=== PATIENT | female | born 1960 | race Caucasian/White ===

== ENCOUNTER 2017-02-02 06:03 | Inpatient (IN) | payer OTHER ==
[2017-01-17 13:22] VITALS: BMI 38.0
[2017-02-02] MEDS ORDERED: MIDAZOLAM HCL 2 MG/2 ML SINGLE DOSE VIAL ONE ×3 (07:10→09:01)
[2017-02-02] MEDS ORDERED: ROPIVACAINE HCL 0.5% 30ML VIAL ONE (07:10)
[2017-02-02] MEDS ORDERED: DEXAMETHASONE SOD PHOSPHATE/PF 10 MG/ML SDV ONE (07:10)
[2017-02-02] MEDS ORDERED: SODIUM CHLORIDE 0.9% P/F 10 ML VIAL IJ ONE (07:10)
[2017-02-02] MEDS ORDERED: BUPIVACAINE HCL/PF (5 MG/ML) 30 ML VIAL IJ ONE (07:10)
[2017-02-02] MEDS ORDERED: VANCOMYCIN 1,000 MG VIAL (RESTRICTED TO ID ONLY) ONE (07:13)
[2017-02-02] MEDS ORDERED: TRANEXAMIC ACID 1000 MG/10 ML VIAL ONE ×3 (07:13→09:07)
[2017-02-02] MEDS ORDERED: ceFAZolin SODIUM 1 GM VIAL ONE ×2 (07:13→09:07)
[2017-02-02] MEDS ORDERED: TRANEXAMIC ACID 1000 MG/10 ML VIAL IVPUSH ONE ×2 (07:22→11:35)
[2017-02-02] MEDS ORDERED: CEFAZOLIN 2 GM in DEXTROSE 5%-WATER - 50 ML IVPB ONE (07:22)
[2017-02-02] MEDS ORDERED: ROPIVICAINE 0.2%/MORPH PF/KETOROLAC - 51ML DISP.SYRINGE IA ONE ×3 (07:22→12:15)
[2017-02-02] MEDS: GABAPENTIN 300 MG CAPSULE (FP) PO ONE (07:25)
[2017-02-02] MEDS: PANTOPRAZOLE 40 MG TABLET (FP) PO ONE (07:25)
[2017-02-02] MEDS: oxyCODONE HCL 10 MG SUSTAINED ACTING TABLET PO ONE (07:25)
[2017-02-02] MEDS: CELECOXIB 200 MG CAPSULE PO ONE (07:25)
[2017-02-02] MEDS ORDERED: BUPIVACAINE HCL/PF 0.5% (5MG/ML) 10 ML VIAL ONE (07:46)
[2017-02-02] MEDS ORDERED: SUCCINYLCHOLINE CHLORIDE 200 MG/10 ML VIAL ONE (08:56)
[2017-02-02] MEDS ORDERED: PROPOFOL 20 ML ONE ×3 (08:56)
[2017-02-02] MEDS ORDERED: ePHEDrine SULFATE 50 MG/1 ML AMPULE ONE (09:51)
[2017-02-02] MEDS ORDERED: VANCOMYCIN 1 GRAM (PRE-DOCKED) 1,000 MG/250 ML BAG IVPB ONE (11:36)
[2017-02-02] MEDS ORDERED: CLONAZEPAM 0.125 MG PO PRN (12:51)
--- NOTE | 2017-02-02 12:51 | OP ---
Operative Note - Note: Operative Date: 02/02/17 Pre-Operative Diagnosis: left knee OA Operation: left TKA Post-Operative Diagnosis: Same as Pre-op Surgeon: Mo Castillo Meter Calibrator: Dede Bullock Anesthesia: Spinal Estimated Blood Loss (mls): 100
[2017-02-02] MEDS ORDERED: ONDANSETRON 4 MG/2 ML VIAL IVPB PRN (12:55)
[2017-02-02] MEDS ORDERED: MAGNESIUM HYDROX 2400MG/30ML ORAL SUSPENSION 30 ML CUP PO PRN (12:55)
[2017-02-02] MEDS ORDERED: MAG HYDROX/AL HYDROX/SIMETH 30 ML UNIT-DOSE CUP PO PRN (12:55)
[2017-02-02] MEDS ORDERED: LACTATED RINGERS SOLUTION 1,000 ML IV SCH (13:00)
[2017-02-02] MEDS ORDERED: oxyCODONE HCL 5 MG TABLET PO PRN (14:20)
[2017-02-02] MEDS ORDERED: KETOROLAC TROMETHAMINE 30 MG/1 ML VIAL ONE (14:27)
[2017-02-02] MEDS ORDERED: traMADol HCL 50 MG TABLET ONE (14:28)
[2017-02-02] MEDS ORDERED: ACETAMINOPHEN 325 MG TABLET (FP) ONE (14:28)
[2017-02-02] MEDS: KETOROLAC TROMETHAMINE 30 MG/1 ML VIAL IVPUSH SCH ×2 (14:30→19:30)
[2017-02-02] MEDS: traMADol HCL 50 MG TABLET PO SCH ×2 (14:30→19:30)
[2017-02-02] MEDS: ACETAMINOPHEN 325 MG TABLET (FP) PO SCH ×2 (14:30→21:14)
[2017-02-02] MEDS: oxyCODONE HCL 5 MG TABLET PO PRN (15:30)
[2017-02-02] MEDS: CEFAZOLIN 2 GM/D5W 50 ML IVPB SCH (18:00)
[2017-02-02] MEDS: oxyCODONE HCL 10 MG SUSTAINED ACTING TABLET PO SCH (21:14)
[2017-02-02] MEDS: SENNOSIDES/DOCUSATE COMBO (SENNA PLUS) TABLET (UD) PO SCH (21:14)
[2017-02-02] MEDS: clonazePAM 0.5 MG TABLET PO SCH (21:15)
[2017-02-02] MEDS: GABAPENTIN 300 MG CAPSULE (FP) PO SCH ×2 (21:15→21:16)
[2017-02-02] MEDS: CELECOXIB 200 MG CAPSULE PO SCH (21:15)
[2017-02-02] MEDS: ASCORBIC ACID 500 MG TABLET (FP) PO SCH (21:16)
[2017-02-02] MEDS: CHOLECALCIFEROL (VITAMIN D3) 1,000 UNIT TABLET (FP) PO SCH (21:16)
[2017-02-03] MEDS: traMADol HCL 50 MG TABLET PO SCH ×4 (00:19→19:21)
[2017-02-03] MEDS: KETOROLAC TROMETHAMINE 30 MG/1 ML VIAL IVPUSH SCH ×2 (00:20→06:50)
[2017-02-03] MEDS: CEFAZOLIN 2 GM/D5W 50 ML IVPB SCH (02:41)
[2017-02-03] MEDS: ACETAMINOPHEN 325 MG TABLET (FP) PO SCH ×4 (03:06→20:37)
[2017-02-03] MEDS: LEVOTHYROXINE NA 125 MCG TABLET (FP) PO SCH (06:50)
[2017-02-03] MEDS: LIOTHYRONINE SODIUM 5 MCG TABLET PO SCH (06:56)
[2017-02-03 08:42] LABS: MCH 27.1 pg (25.7-33.7); MEAN CELL VOLUME 82.3 fl (80-96); MEAN PLT VOLUME 8.4 fl (7.5-11.1); PLATELET COUNT 217 K/MM3 (134-434); RDW 14.3 % (11.6-15.6); WHITE BLOOD COUNT 7.3 K/mm3 (4.0-10.8)
[2017-02-03 08:50] LABS: ANION GAP 6 (8-16); CALCIUM 8.4 mg/dl (8.4-10.2); CO2 28 mmol/L (22-28); CREATININE 0.9 mg/dl (0.6-1.3); GLUCOSE,RANDOM 122 mg/dl (74-106)
[2017-02-03] MEDS: ASCORBIC ACID 500 MG TABLET (FP) PO SCH ×2 (09:28→22:02)
[2017-02-03] MEDS: GABAPENTIN 300 MG CAPSULE (FP) PO SCH ×4 (09:28→22:01)
[2017-02-03] MEDS: oxyCODONE HCL 10 MG SUSTAINED ACTING TABLET PO SCH ×2 (09:28→22:01)
[2017-02-03] MEDS: MULTIVITAMINS (DAILY MVI) TABLET (FP) PO SCH (09:28)
[2017-02-03] MEDS: SENNOSIDES/DOCUSATE COMBO (SENNA PLUS) TABLET (UD) PO SCH ×2 (09:28→22:02)
[2017-02-03] MEDS: ASPIRIN 325 MG TABLET PO SCH (09:29)
[2017-02-03] MEDS: HYDROCHLOROTHIAZIDE 12.5 MG CAPSULE (FP) PO SCH (09:29)
[2017-02-03] MEDS: PANTOPRAZOLE 40 MG TABLET (FP) PO SCH (09:29)
[2017-02-03] MEDS: CELECOXIB 200 MG CAPSULE PO SCH ×2 (09:29→22:00)
[2017-02-03] MEDS: LOSARTAN POTASSIUM 50 MG TABLET (FP) PO SCH (09:35)
[2017-02-03] MEDS: amLODIPine BESYLATE 2.5 MG TABLET (FP) PO SCH (09:35)
[2017-02-03] MEDS ORDERED: PATIENT'S OWN MEDICATION (NON-FORMULARY) (Losartan/Hydrochlorothiazide [Losartan-Hctz 100- PO SCH (10:00)
[2017-02-03] MEDS: GABAPENTIN 300 MG CAPSULE (FP) PO ONE (10:19)
[2017-02-03] MEDS: CELECOXIB 200 MG CAPSULE PO ONE (10:19)
[2017-02-03] MEDS: PANTOPRAZOLE 40 MG TABLET (FP) PO ONE (10:20)
[2017-02-03] MEDS: oxyCODONE HCL 10 MG SUSTAINED ACTING TABLET PO ONE (10:20)
--- NOTE | 2017-02-03 13:36 | PN ---
Progress Note (short form) - Note Progress Note: ANESTHESIOLOGY POST-OP: 56 yo female POD#1 s/p TKA. Patient doing well. Pain adequately controlled. Adductor canal and posterior tibial blocks working well. Encouraged patient to pariticipate in PT and continue to use IS. Patient satisfied with anesthesia care.
[2017-02-03] MEDS: oxyCODONE HCL 5 MG TABLET PO PRN (16:03)
[2017-02-03] MEDS ORDERED: KETOROLAC TROMETHAMINE 30 MG/1 ML VIAL IVPUSH ONE (21:21)
--- NOTE | 2017-02-03 21:23 | PN ---
Progress Note (short form) - Note Progress Note: Pt seen and examined. Doing well. Pain 410. AVSS Selected Entries 02/03/17 14:28 Temperature 97.8 F Pulse Rate 70 Respiratory 18 Rate Blood Pressure 129/75 O2 Sat by Pulse 98 Oximetry (%) Laboratory Tests 02/03/17 02/03/17 07:00 07:00 WBC 7.3 Hgb 11.5 Hct 35.0 Plt Count 217 Sodium 137 Potassium 3.5 Chloride 103 Carbon Dioxide 28 Anion Gap 6 L BUN 13 Creatinine 0.9 Random Glucose 122 H Calcium 8.4 Gen: NAD LLE: c/d/i, NVID A/P 56yo female POD#1 s/p L TKA 1. PT/OOB - WBAT LLE 2. D/C home tomorrow
[2017-02-03] MEDS: clonazePAM 0.5 MG TABLET PO SCH (22:00)
[2017-02-03] MEDS: CHOLECALCIFEROL (VITAMIN D3) 1,000 UNIT TABLET (FP) PO SCH (22:04)
[2017-02-04] MEDS: traMADol HCL 50 MG TABLET PO SCH ×3 (00:15→13:39)
[2017-02-04] MEDS: ACETAMINOPHEN 325 MG TABLET (FP) PO SCH ×2 (03:23→08:54)
[2017-02-04] MEDS ORDERED: PT OWN MED DRAWER 7, Y5N ONE (06:51)
[2017-02-04] MEDS: LIOTHYRONINE SODIUM 5 MCG TABLET PO SCH (06:51)
[2017-02-04] MEDS: LEVOTHYROXINE NA 125 MCG TABLET (FP) PO SCH (06:51)
[2017-02-04 08:00] LABS: MCH 27.8 pg (25.7-33.7); MCHC 33.8 g/dl (32.0-36.0); MEAN CELL VOLUME 82.2 fl (80-96); MEAN PLT VOLUME 8.2 fl (7.5-11.1); PLATELET COUNT 202 K/MM3 (134-434); RDW 14.3 % (11.6-15.6); WHITE BLOOD COUNT 6.3 K/mm3 (4.0-10.8)
[2017-02-04 08:27] LABS: ANION GAP 5 (8-16); CALCIUM 8.5 mg/dl (8.4-10.2); CO2 31 mmol/L (22-28); CREATININE 0.9 mg/dl (0.6-1.3); GLUCOSE,RANDOM 96 mg/dl (74-106)
[2017-02-04] MEDS: ASPIRIN 325 MG TABLET PO SCH (08:53)
[2017-02-04] MEDS: amLODIPine BESYLATE 2.5 MG TABLET (FP) PO SCH (10:43)
[2017-02-04] MEDS: CELECOXIB 200 MG CAPSULE PO SCH (10:43)
[2017-02-04] MEDS: ASCORBIC ACID 500 MG TABLET (FP) PO SCH (10:44)
[2017-02-04] MEDS: PANTOPRAZOLE 40 MG TABLET (FP) PO SCH (10:44)
[2017-02-04] MEDS: SENNOSIDES/DOCUSATE COMBO (SENNA PLUS) TABLET (UD) PO SCH (10:44)
[2017-02-04] MEDS: MULTIVITAMINS (DAILY MVI) TABLET (FP) PO SCH (10:44)
[2017-02-04] MEDS: oxyCODONE HCL 10 MG SUSTAINED ACTING TABLET PO SCH (10:45)
[2017-02-04] MEDS: GABAPENTIN 300 MG CAPSULE (FP) PO SCH ×2 (10:45)
[2017-02-04] MEDS: HYDROCHLOROTHIAZIDE 12.5 MG CAPSULE (FP) PO SCH (10:46)
[2017-02-04] MEDS: LOSARTAN POTASSIUM 50 MG TABLET (FP) PO SCH (10:46)
[2017-02-04] MEDS: oxyCODONE HCL 5 MG TABLET PO PRN (10:46)
[2017-02-04] MEDS ORDERED: KETOROLAC TROMETHAMINE 30 MG/1 ML VIAL IVPUSH ONE (13:39)
--- NOTE | 2017-02-04 13:40 | PN ---
Progress Note (short form) - Note Progress Note: Pt seen and examined. Doing well. AVSS Selected Entries 02/04/17 02/04/17 06:00 08:29 Temperature 98.7 F Pulse Rate 67 Respiratory 18 Rate Blood Pressure 120/55 O2 Sat by Pulse 96 Oximetry (%) Laboratory Tests 02/04/17 02/04/17 07:48 07:48 WBC 6.3 Hgb 11.6 Hct 34.2 Plt Count 202 Sodium 140 Potassium 3.6 Chloride 104 Carbon Dioxide 31 H Anion Gap 5 L BUN 11 Creatinine 0.9 Random Glucose 96 D Calcium 8.5 Gen: NAD LLE: c/d/i, NVID A/P 56yo female POD#2 s/p L TKA 1. PT/OOB - WBAT LLE 2. D/C home today
--- NOTE | 2017-02-04 14:05 | DS ---
Physical Examination Vital Signs: Vital Signs Temperature 98.7 F 02/04/17 06:00 Pulse Rate 67 02/04/17 06:00 Respiratory Rate 18 02/04/17 06:00 Blood Pressure 120/55 02/04/17 06:00 O2 Sat by Pulse Oximetry (%) 96 02/04/17 08:29 Labs: CBC, BMP 02/04/17 07:48 02/04/17 07:48 Discharge Summary Reason For Visit: LEFT KNEE OSTEOARTHRITIS Current Active Problems Osteoarthritis of left knee (Acute) Procedures: Principal: left TKA Hospital Course: Admitted for elective surgery. Procedure performed without complications. Pt received postoperative antibiotic prophylaxis and DVT ppx. Ambulated with physical therapy. Stable for discharge home with outpatient followup. Condition: Stable - Instructions Diet, Activity, Other Instructions: Dr. Castillo - Knee Replacement Instructions Keep the Aquacel dressing on until removed by Dr. Castillo in 10-14 days - it is antibacterial and waterproof and you can shower with it on. Call the office for a follow-up appointment with Dr. Castillo in 10-14 days. Take one Aspirin 325mg daily for 6 weeks to prevent blood clots in your legs. Take one Pantoprazole 40mg daily for 6 weeks to protect against heartburn and ulcers. Take Celebrex 200mg twice daily for 30 days to reduce swelling and inflammation - after that, resume taking meloxicam 15mg daily. Take an over the counter stool softener, multivitamin, and extra vitamin C supplement daily. For pain: *Mild pain (1-3/10): Take 1 Tramadol tablet every 4 hours as needed. Moderate pain (4-6/10): Take 1 Tramadol tablet and 1 Percocet tablet every 4 hours as needed. Severe pain (7-10/10): Take 1 Tramadol tablet and 2 Percocet tablets every 4 hours as needed. Activity: You can put as much weight on the operative leg as you want. Right after you get home, there will be a physical therapist coming to your house to help you walk around and bend/straighten your knee. After your follow-up appointment, you will be sent for more intensive outpatient physical therapy which will include machines and equipment that the home therapist cannot bring to your house. Always use a walker or cane for balance and to prevent falls. Disposition: VNS/HOME HEALTH CARE - Home Medications Comprehensive Discharge Medication List: Ambulatory Orders Amlodipine Besylate [Norvasc -] 2.5 mg PO DAILY 01/17/17 Bupropion HCl [Bupropion Xl] 300 mg PO DAILY 01/17/17 Cholecalciferol (Vitamin D3) [Vitamin D3] 2,000 unit PO HS 01/17/17 Clonazepam 0.125 mg PO ASDIR PRN 01/17/17 Clonazepam 0.25 mg PO HS 01/17/17 Cyanocobalamin [Vitamin B12 -] 1,000 mcg PO HS 01/17/17 Levothyroxine [Synthroid -] 125 mcg PO DAILY 01/17/17 Liothyronine Sodium [Cytomel] 5 mcg PO DAILY 01/17/17 Losartan/Hydrochlorothiazide [Losartan-Hctz 100-12.5 mg Tab] 1 each PO DAILY Pregabalin [Lyrica -] 75 mg PO BID 01/17/17 Ascorbic Acid [Vitamin C -] 500 mg PO BID tablet 02/04/17 Aspirin [ASA -] 325 mg PO DAILY@0800 tablet 02/04/17 Celecoxib [CeleBREX -] 200 mg PO BID #60 tab 02/04/17 Multivitamins [Multivit ([facility] Formul[facility])] 1 tab PO DAILY tab 02/04/17 Oxycodone HCl/Acetaminophen [Percocet 5-325 mg Tablet] 1 - 2 tab PO Q4H PRN #60 tablet MDD 10 02/04/17 Pantoprazole Sodium [Protonix -] 40 mg PO DAILY #40 tab 02/04/17 Sennosides/Docusate Sodium [Pericolace -] 2 tablet PO BID tablet 02/04/17 Tramadol HCl [Ultram -] 50 mg PO Q4H PRN #90 tablet MDD 6 02/04/17
[2017-02-05 06:44] VITALS: BP 121/73; PULSE 93; TEMP 98.3
--- NOTE | 2017-02-06 16:13 | SURG ---
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 For further detail, please refer to operative report. Visit type - Case Type Case Type: Scheduled Admission
--- NOTE | 2017-02-08 16:02 | PATH ---
Surgical Pathology Report Patient Name: CEASAR CARPIO Med. Rec. #: [id number] /Age/Gender: 1960 (Age: 56) / F Account: [id number] Location: [facility] MED-SURG Taken: 02/02/2017 Received: 02/02/2017 Reported: 02/08/2017 Physicians: Mo Castillo M.D. Specimen(s) Received LEFT KNEE BONE Clinical History Left knee osteoarthritis Final Diagnosis KNEE BONE, LEFT, TOTAL KNEE REPLACEMENT: DEGENERATIVE JOINT DISEASE. Electronically Signed Valentine López M.D. Gross Description Received in formalin labeled "left knee bones," is a 13.5 x 11.0 x 1.8 cm aggregate of multiple mcqueen, irregular portions of bone and soft tissue. The tibial plateau measures 7.8 x 6.0 x 1.7 cm. There is a 2.2 cm in greatest dimension area of eburnation present. The remaining articular surfaces are mcqueen-yellow and focally granular. The underlying trabecular bone is yellow and hard. [employer] sections are submitted in one cassette, following decalcification. 02/03/201702/03/2017
== END 2017-02-04 14:30 | disposition home health service (06) | DRG 302 ==
LOC: FM/S 06:03
PROVIDERS: ADMIT Student in an Organized Health Care Education/Training Program; ATTEND Student in an Organized Health Care Education/Training Program
PROC: 0SRD0J9 Replacement of Left Knee Joint with Synthetic Substitute, Cemented, Open Approach (ICD-10-PCS; principal; 2017-02-02 09:28)
DX: M17.12 Unilateral primary osteoarthritis, left knee (principal); I10 Essential (primary) hypertension; M79.7 Fibromyalgia; E55.9 Vitamin D deficiency, unspecified
CPT/HCPCS: 36415; 73560-TC-LT; 80048; 85027; 88304-TC; 88311-TC; 94010; 94760; 97110-GP; 97116-GP; 97161-GP

== ENCOUNTER 2017-04-08 09:05 | Emergency (ER) | payer OTHER ==
[2017-04-08 09:11] VITALS: BP 153/81; PULSE 88; TEMP 97.8; BMI 38.0
--- NOTE | 2017-04-08 09:24 | PDOC ---
History of Present Illness - General Chief Complaint: Pain Stated Complaint: left knee p[ain Time Seen by Provider: 04/08/17 09:06 History Source: Patient Exam Limitations: No Limitations - History of Present Illness Initial Comments: 04/08/17 09:50 56y F hx of hypothyroidism, htn, hl, s/p L total knee replacement approx 2 months ago presents with atraumatic L knee pain. The patient was fine yesterday , ambulating, then lats night, she was watching tv when she repositioned her leg when she had onset of L knee pain. Since then she noticed significant pain that is always rpesent andw orse when she is ambulating/walking. It feels improved when she is sitting with her leg being supported. Pt denies any falls/ injuries, fever/chills, numnbess/tingling/weakness. Pt took a percocet at home without significnt improvement. Pt notes an unremarakble post op course. Ortho: Dr. Mo Hayward Past History - Past Medical History Allergies/Adverse Reactions: Allergies Allergy/AdvReac Type Severity Reaction Status Date / Time enalapril Allergy Severe Rash Verified 04/08/17 09:06 olmesartan medoxomil Allergy Severe Swelling Verified 04/08/17 09:06 [From Benicar] Penicillins Allergy Unknown Verified 04/08/17 09:06 Home Medications: Ambulatory Orders Amlodipine Besylate [Norvasc -] 2.5 mg PO DAILY 01/17/17 Bupropion HCl [Bupropion Xl] 300 mg PO DAILY 01/17/17 Cholecalciferol (Vitamin D3) [Vitamin D3] 2,000 unit PO HS 01/17/17 Clonazepam 0.125 mg PO ASDIR PRN 01/17/17 Clonazepam 0.25 mg PO HS 01/17/17 Cyanocobalamin [Vitamin B12 -] 1,000 mcg PO HS 01/17/17 Levothyroxine [Synthroid -] 125 mcg PO DAILY 01/17/17 Liothyronine Sodium [Cytomel] 5 mcg PO DAILY 01/17/17 Losartan/Hydrochlorothiazide [Losartan-Hctz 100-12.5 mg Tab] 1 each PO DAILY Pregabalin [Lyrica -] 75 mg PO BID 01/17/17 Ascorbic Acid [Vitamin C -] 500 mg PO BID tablet 02/04/17 Aspirin [ASA -] 325 mg PO DAILY@0800 tablet 02/04/17 Celecoxib [CeleBREX -] 200 mg PO BID #60 tab 02/04/17 Multivitamins [Multivit ([facility] Formulary)] 1 tab PO DAILY tab 02/04/17 Oxycodone HCl/Acetaminophen [Percocet 5-325 mg Tablet] 1 - 2 tab PO Q4H PRN #60 tablet MDD 10 02/04/17 Pantoprazole Sodium [Protonix -] 40 mg PO DAILY #40 tab 02/04/17 Sennosides/Docusate Sodium [Pericolace -] 2 tablet PO BID tablet 02/04/17 Tramadol HCl [Ultram -] 50 mg PO Q4H PRN #90 tablet MDD 6 02/04/17 Meloxicam [Mobic (Nf) -] 7.5 mg PO ASDIR 04/08/17 Anemia: No Asthma: No Cancer: Yes (THYROID 2011,SX AND RT) Cardiac Disorders: No CVA: No COPD: No CHF: No Dementia: No Diabetes: No GI Disorders: No Disorders: No HTN: Yes Hypercholesterolemia: No Liver Disease: No Seizures: No Thyroid Disease: Yes (SEE ABOVE) - Surgical History Abdominal Surgery: No Appendectomy: No Cardiac Surgery: No Cholecystectomy: No Lung Surgery: No Neurologic Surgery: No Orthopedic Surgery: Yes (LEFT KNEE ARTHROSCOPY 2004) - Psycho/Social/Smoking Cessation Hx Anxiety: No Suicidal Ideation: No Smoking History: Never smoked Have you smoked in the past 12 months: No If you are a former smoker, when did you quit?: 2001 Information on smoking cessation initiated: No Hx Alcohol Use: No Drug/Substance Use Hx: No Substance Use Type: None Hx Substance Use Treatment: No Review of Systems - Review of Systems Able to Perform ROS?: Yes Comments:: 04/08/17 10:10 Constitutional - no reported Fever, Chills, Musculskelatal - +joint swelling, knee pain no reported back pain, skin - no reported bruising, erythema, rash neurological: no reported headache, numbness, focal weakness, tingling, ataxia, hematologic: no reported anemia, easy bruising, easy bleeding *Physical Exam - Vital Signs Last Vital Signs Temp Pulse Resp BP Pulse Ox 97.8 F 88 20 153/81 97 04/08/17 09:05 04/08/17 09:05 04/08/17 09:05 04/08/17 09:05 04/08/17 09:05 - Physical Exam Comments: 04/08/17 10:13 GENERAL: The patient is awake, alert, and fully oriented, Nontoxic - in no acute distress. EXTREMITIES: Mild pain in the L knee on aplpation, mild joint effusion and warmth w/o erythema/induration able to range knee to approx 45 degrees before pain starts. trace edema, SKIN: Warm, Dry, normal turgor, Medical Decision Making - Medical Decision Making 04/08/17 10:15 xray to r/o fx will refer to dr. hayward as outpatient percocet for pain 04/08/17 10:22 xray negative for acute injury will notify dr. Hayward outpatient fu return precautions were discussed I discussed the physical exam findings, ancillary test results and final diagnoses with the patient. I answered all of the patient's questions. The patient was satisfied with the care received and felt comfortable with the discharge plan and treatment plan. The patient will call their primary care physician within 24 hours to arrange follow-up and will return to the Emergency Department with any new, persistent or worsening symptoms. 04/08/17 11:01 case dwFlorence Haddad from dr. haywards service recommends a knee immobilizer an fu with dr. hayward next week pt has crutches. *DC/Admit/Observation/Transfer Diagnosis at time of Disposition: Knee effusion, left Knee pain, left Qualifiers: Chronicity: acute Qualified Code(s): M25.562 - Pain in left knee - Discharge Dispostion Disposition: HOME Condition at time of disposition: Improved Admit: No - Referrals Referrals: Mo Hayward MD [Staff Physician] - - Patient Instructions Printed Discharge Instructions: DI for Knee Pain Additional Instructions: Return to the emergency department immediately with ANY new, persistent or worsening symptoms. You MUST call and follow up with your doctor tomorrow for further evaluation of your symptoms. Results were discussed with you. Please make sure your doctor reviews the results of your emergency evaluation. If you had any xrays during your visit, it was read preliminarily by myself, a Radiologist will review it and if there are any additional findings we will call you.
[2017-04-08] MEDS ORDERED: KETOROLAC TROMETHAMINE 60 MG/2 ML VIAL IM ONE (09:45)
== END 2017-04-08 11:20 | disposition home or self-care (01) ==
LOC: FER 09:05
PROC: 3E0233Z Introduction of Anti-inflammatory into Muscle, Percutaneous Approach (ICD-10-PCS; principal; 2017-04-08)
DX: M25.462 Effusion, left knee (principal); M25.562 Pain in left knee; I10 Essential (primary) hypertension; E78.5 Hyperlipidemia, unspecified; Z88.0 Allergy status to penicillin; Z88.8 Allergy status to other drugs, medicaments and biological substances; Z79.82 Long term (current) use of aspirin; Z85.850 Personal history of malignant neoplasm of thyroid
CPT/HCPCS: 73560-TC-LT; 99282-25

== ENCOUNTER 2017-04-10 09:25 | Inpatient (IN) | payer OTHER ==
[2017-04-10 09:35] VITALS: BMI 38.0
[2017-04-10] MEDS ORDERED: morphine CARPU-JECT 4 MG/1 ML DISP.SYRIN IVPUSH ONE (09:47)
[2017-04-10] MEDS ORDERED: clonazePAM 0.5 MG TABLET PO ONE (09:47)
--- NOTE | 2017-04-10 09:54 | PDOC ---
History of Present Illness - General Chief Complaint: Pain Stated Complaint: LEFT KNEE PAIN Time Seen by Provider: 04/10/17 09:26 History Source: Patient Exam Limitations: No Limitations - History of Present Illness Initial Comments: 04/10/17 09:49 Patient is a 56F with history of left knee replacement, anxiety, and hypothyroidism here today complaining of left knee pain. She had knee replacement surgery in January and was recovering well, with full normal range of motion and was able to walk without assistance. On Monday, she felt a pop in her knee and since then she has only been able to walk with a cane and in pain. She presented to the ED where x-rays showed no evidence of dislocation. She went to clinic this morning, where they told her it was dislocated and sent her to the ED to see her orthopedic surgeon Dr Mo Castillo. She has no other complaints at this time. Specifically, she denies nausea, vomiting, fevers, chills, chest pain, abdominal pain and shortness of breath. Past History - Past Medical History Allergies/Adverse Reactions: Allergies Allergy/AdvReac Type Severity Reaction Status Date / Time enalapril Allergy Severe Rash Verified 04/08/17 09:06 olmesartan medoxomil Allergy Severe Swelling Verified 04/08/17 09:06 [From Benicar] Penicillins Allergy Unknown Verified 04/08/17 09:06 Home Medications: Ambulatory Orders Amlodipine Besylate [Norvasc -] 2.5 mg PO DAILY 01/17/17 Bupropion HCl [Bupropion Xl] 300 mg PO DAILY 01/17/17 Cholecalciferol (Vitamin D3) [Vitamin D3] 2,000 unit PO HS 01/17/17 Clonazepam 0.125 mg PO ASDIR PRN 01/17/17 Clonazepam 0.25 mg PO HS 01/17/17 Cyanocobalamin [Vitamin B12 -] 1,000 mcg PO HS 01/17/17 Levothyroxine [Synthroid -] 125 mcg PO DAILY 01/17/17 Liothyronine Sodium [Cytomel] 5 mcg PO DAILY 01/17/17 Losartan/Hydrochlorothiazide [Losartan-Hctz 100-12.5 mg Tab] 1 each PO DAILY Pregabalin [Lyrica -] 75 mg PO BID 01/17/17 Ascorbic Acid [Vitamin C -] 500 mg PO BID tablet 02/04/17 Aspirin [ASA -] 325 mg PO DAILY@0800 tablet 02/04/17 Multivitamins [Multivit ([facility] Formul[facility])] 1 tab PO DAILY tab 02/04/17 Oxycodone HCl/Acetaminophen [Percocet 5-325 mg Tablet] 1 - 2 tab PO Q4H PRN #60 tablet MDD 10 02/04/17 Pantoprazole Sodium [Protonix -] 40 mg PO DAILY #40 tab 02/04/17 Sennosides/Docusate Sodium [Pericolace -] 2 tablet PO BID tablet 02/04/17 Tramadol HCl [Ultram -] 50 mg PO Q4H PRN #90 tablet MDD 6 02/04/17 Meloxicam [Mobic (Nf) -] 7.5 mg PO ASDIR 04/08/17 Anemia: No Asthma: No Cancer: Yes (THYROID 2011,SX AND RT) Cardiac Disorders: No CVA: No COPD: No CHF: No Dementia: No Diabetes: No GI Disorders: No Disorders: No HTN: Yes Hypercholesterolemia: No Liver Disease: No Seizures: No Thyroid Disease: Yes (SEE ABOVE) - Surgical History Abdominal Surgery: No Appendectomy: No Cardiac Surgery: No Cholecystectomy: No Lung Surgery: No Neurologic Surgery: No Orthopedic Surgery: Yes (LEFT KNEE ARTHROSCOPY 2004) - Psycho/Social/Smoking Cessation Hx Anxiety: No Suicidal Ideation: No Smoking History: Never smoked Have you smoked in the past 12 months: No If you are a former smoker, when did you quit?: 1997 Information on smoking cessation initiated: No Hx Alcohol Use: No Drug/Substance Use Hx: No Substance Use Type: None Hx Substance Use Treatment: No Review of Systems - Review of Systems Comments:: 04/10/17 09:53 GENERAL/CONSTITUTIONAL: No fever or chills. No weakness. HEAD, EYES, EARS, NOSE AND THROAT: No change in vision. No sore throat. CARDIOVASCULAR: No chest pain or shortness of breath RESPIRATORY: No cough, wheezing, or hemoptysis. GASTROINTESTINAL: No nausea, vomiting, diarrhea or constipation. GENITOURINARY: No dysuria, frequency, or change in urination. MUSCULOSKELETAL: Positive for left knee pain SKIN: No rash NEUROLOGIC: No headache, loss of consciousness, or change in strength/sensation. *Physical Exam - Vital Signs Last Vital Signs Temp Pulse Resp BP Pulse Ox 98.2 F 97 H 16 166/102 99 04/10/17 09:26 04/10/17 09:26 04/10/17 09:26 04/10/17 09:26 04/10/17 09:26 - Physical Exam Comments: 04/10/17 09:54 GENERAL: Awake, alert, and fully oriented, in no acute distress HEAD: No signs of trauma, normocephalic, atraumatic EYES: EOMI, sclera anicteric, conjunctiva clear ENT: Auricles normal inspection, hearing grossly normal, nares patent, oropharynx clear without exudates. Moist mucosa LUNGS: No distress, speaks full sentences, clear to auscultation bilaterally HEART: Regular rate and rhythm, normal S1 and S2, no murmurs, rubs or gallops, peripheral pulses normal and equal bilaterally. ABDOMEN: Soft, nontender, normoactive bowel sounds. No guarding, no rebound. No masses LEFT LEG: Distal aspect of left knee joint posteriorly displaced compared to right, neurovascularly intact distal to injury. Unable to fully extend, flexion limited at 30 degrees secondary to pain. Nontender to palpation, nonerythematous OTHER EXTREMITIES: Normal inspection, Normal range of motion, no edema. No clubbing or cyanosis. NEUROLOGICAL: Cranial nerves II through XII grossly intact. Normal speech, no focal sensorimotor deficits SKIN: Warm, Dry, normal turgor, no rashes or lesions noted. ED Treatment Course - LABORATORY CBC & Chemistry Diagram: 04/10/17 10:15 04/10/17 10:15 - RADIOLOGY Radiology Studies Ordered: Category Date Time Status KNEE 2 POS-LEFT [RAD] Stat Radiology 04/10/17 09:48 Ordered Medical Decision Making - Medical Decision Making 04/10/17 09:59 56F with history of knee replacement, anxiety and hypothyroidism here today complaining of left knee pain, sent in from ortho clinic for evaluation by Dr Castillo. Hypertensive to 160 systolic, vital signs otherwise normal and stable. Will evaluate with pre-op labs and knee x-ray. Will treat with pain and anxiety with morphien and home dose of clonazepam. 04/10/17 12:39 X-ray shows anterior knee dislocation. Patient to be taken to OR to attempt to reduce knee, per Dr Castillo. *DC/Admit/Observation/Transfer Diagnosis at time of Disposition: Knee pain, left Qualifiers: Chronicity: acute Qualified Code(s): M25.562 - Pain in left knee - Discharge Dispostion Condition at time of disposition: Stable
[2017-04-10] MEDS ORDERED: clonazePAM 0.5 MG TABLET ONE (09:56)
[2017-04-10] MEDS ORDERED: morphine CARPU-JECT 4 MG/1 ML DISP.SYRIN ONE (09:56)
--- NOTE | 2017-04-10 10:27 | PDOC ---
Attending Attestation - Resident Resident Name: Sixto Torres - ED Attending Attestation I have performed the following: I have examined & evaluated the patient, The case was reviewed & discussed with the resident, I agree w/resident's findings & plan, Exceptions are as noted - HPI HPI: 04/15/17 16:14 this is a 56 yo female s/p L total knee replacement on 02/02/17, who was seen in the ER s/p knee pain which was sustained after getting up from a seated position. since that time, she has has severe knee pain an difficulty ambulating. She was seen by her orthopedist who referred her to the ER for further management. - Physicial Exam PE: 04/15/17 16:15 Left knee: Neurovascularly intact, Unable to fully extend, flexion limited at 30 degrees secondary to pain. Nontender to palpation, nonerythematous - Medical Decision Making 56 yo F s/p prosthetic knee dislocation Will contact ortho will sent pre op labs Discharge Disposition - Diagnosis Knee pain, left Qualifiers: Chronicity: acute Qualified Code(s): M25.562 - Pain in left knee - Discharge Dispostion Condition at time of disposition: Stable Last Admission D/C Date: 02/04/17 Admit: Yes - Prescriptions
[2017-04-10 10:30] LABS: MCH 26.6 pg (25.7-33.7); MEAN CELL VOLUME 83.1 fl (80-96); MEAN PLT VOLUME 8.4 fl (7.5-11.1); PLATELET COUNT 267 K/MM3 (134-434); RDW 13.6 % (11.6-15.6); WHITE BLOOD COUNT 8.4 K/mm3 (4.0-10.8)
[2017-04-10 10:36] LABS: INR 1.02 (0.82-1.09); PROTHROMBIN TIME (PATIENT) 11.4 SEC (10.2-13.0)
[2017-04-10 10:42] LABS: ALBUMIN 3.8 g/dl (3.5-5.0); ALK PHOS 58 U/L (32-92); ANION GAP 8 (8-16); BILIRUBIN,TOTAL 0.3 mg/dl (0.2-1.0); CALCIUM 8.9 mg/dl (8.4-10.2); CO2 31 mmol/L (22-28); CREATININE 0.9 mg/dl (0.6-1.3); GLUCOSE,RANDOM 118 mg/dl (74-106); SGOT/AST 19 U/L (10-42); SGPT/ALT 13 U/L (10-40); TOT PROT 6.9 g/dl (6.4-8.3)
[2017-04-10] MEDS ORDERED: BUPIVACAINE HCL/PF 0.5% (5MG/ML) 10 ML VIAL ONE (13:20)
[2017-04-10] MEDS ORDERED: PROPOFOL 20 ML ONE ×12 (13:22→17:18)
[2017-04-10] MEDS ORDERED: MIDAZOLAM HCL 2 MG/2 ML SINGLE DOSE VIAL ONE (13:22)
[2017-04-10] MEDS ORDERED: LIDOCAINE HCL/PF 2% SDV 5ML VIAL ONE (13:36)
[2017-04-10] MEDS ORDERED: ONDANSETRON 4 MG/2 ML VIAL IVPUSH PRN (13:40)
[2017-04-10] MEDS ORDERED: ceFAZolin SODIUM 1 GM VIAL ONE ×3 (13:43→17:08)
[2017-04-10] MEDS ORDERED: GABAPENTIN 300 MG CAPSULE (FP) ONE (13:56)
[2017-04-10] MEDS ORDERED: CELECOXIB 200 MG CAPSULE ONE (13:56)
[2017-04-10] MEDS ORDERED: oxyCODONE HCL 10 MG SUSTAINED ACTING TABLET ONE (13:56)
[2017-04-10] MEDS: CELECOXIB 200 MG CAPSULE PO ONE ×2 (14:00→17:12)
[2017-04-10] MEDS: oxyCODONE HCL 10 MG SUSTAINED ACTING TABLET PO ONE (14:00)
[2017-04-10] MEDS: GABAPENTIN 300 MG CAPSULE (FP) PO ONE (14:00)
[2017-04-10] MEDS ORDERED: ROPIVICAINE 0.2%/MORPH PF/KETOROLAC - 51ML DISP.SYRINGE IA ONE ×2 (14:02→16:49)
[2017-04-10] MEDS ORDERED: VANCOMYCIN 1,750 MG in DEXTROSE 5%-WATER - 250 ML IVPB ONE (14:02)
[2017-04-10] MEDS ORDERED: CEFAZOLIN 2 GM in DEXTROSE 5%-WATER - 50 ML IVPB ONE (14:02)
[2017-04-10] MEDS ORDERED: TRANEXAMIC ACID 1000 MG/10 ML VIAL IVPUSH ONE (14:02)
--- NOTE | 2017-04-10 14:02 | HP ---
Admitting History and Physical - Admission Chief Complaint: Left knee replacement dislocation History of Present Illness: 56yo female was rising from a seated position Monday when the left knee dislocated. Went to ER where xrays were read as normal. Came to office today where she was found to be dislocated. Sent to ER and admitted for closed reduction. Closed reduction was unsuccessful so pt indicated for open reduction and poly exchange vs component revision to correct instability. History Source: Patient, Medical Record Limitations to Obtaining History: No Limitations - Past Medical History Musculoskeletal: Yes: Osteoarthritis - Smoking History Smoking history: Never smoked Have you smoked in the past 12 months: No If you are a former smoker, when did you quit?: 1997 - Alcohol/Substance Use Hx Alcohol Use: No Home Medications - Allergies Allergies/Adverse Reactions: Allergies Allergy/AdvReac Type Severity Reaction Status Date / Time enalapril Allergy Severe Rash Verified 04/08/17 09:06 olmesartan medoxomil Allergy Severe Swelling Verified 04/08/17 09:06 [From [facility]] Penicillins Allergy Unknown Verified 04/08/17 09:06 - Home Medications Home Medications: Ambulatory Orders Amlodipine Besylate [Norvasc -] 2.5 mg PO DAILY 01/17/17 Bupropion HCl [Bupropion Xl] 300 mg PO DAILY 01/17/17 Cholecalciferol (Vitamin D3) [Vitamin D3] 2,000 unit PO HS 01/17/17 Clonazepam 0.125 mg PO ASDIR PRN 01/17/17 Clonazepam 0.25 mg PO HS 01/17/17 Cyanocobalamin [Vitamin B12 -] 1,000 mcg PO HS 01/17/17 Levothyroxine [Synthroid -] 125 mcg PO DAILY 01/17/17 Liothyronine Sodium [Cytomel] 5 mcg PO DAILY 01/17/17 Losartan/Hydrochlorothiazide [Losartan-Hctz 100-12.5 mg Tab] 1 each PO DAILY Pregabalin [Lyrica -] 75 mg PO BID 01/17/17 Ascorbic Acid [Vitamin C -] 500 mg PO BID tablet 02/04/17 Aspirin [ASA -] 325 mg PO DAILY@0800 tablet 02/04/17 Multivitamins [Multivit ([facility] Formul[facility])] 1 tab PO DAILY tab 02/04/17 Oxycodone HCl/Acetaminophen [Percocet 5-325 mg Tablet] 1 - 2 tab PO Q4H PRN #60 tablet MDD 10 02/04/17 Pantoprazole Sodium [Protonix -] 40 mg PO DAILY #40 tab 02/04/17 Sennosides/Docusate Sodium [Pericolace -] 2 tablet PO BID tablet 02/04/17 Tramadol HCl [Ultram -] 50 mg PO Q4H PRN #90 tablet MDD 6 02/04/17 Meloxicam [Mobic (Nf) -] 7.5 mg PO ASDIR 04/08/17 Physical Examination Vital Signs: Vital Signs Temperature 98.2 F 04/10/17 09:26 Pulse Rate 97 H 04/10/17 09:26 Respiratory Rate 16 04/10/17 09:26 Blood Pressure 166/102 04/10/17 09:26 O2 Sat by Pulse Oximetry (%) 99 04/10/17 09:26 Constitutional: Yes: Well Nourished, No Distress, Calm Eyes: Yes: WNL, Conjunctiva Clear, EOM Intact HENT: Yes: WNL, Atraumatic, Normocephalic Neck: Yes: WNL, Supple Cardiovascular: Yes: WNL, Regular Rate and Rhythm Respiratory: Yes: WNL, Regular Gastrointestinal: Yes: WNL, Soft ...Rectal Exam: Yes: Deferred Musculoskeletal: Yes: Joint Stiffness, Joint Swelling Extremities: Yes: WNL Edema: No Peripheral Pulses WNL: Yes Wound/Incision: Yes: Clean/Dry, Well Approximated Neurological: Yes: WNL, Alert, Oriented ...Motor Strength: WNL Psychiatric: Yes: WNL, Alert, Oriented Labs: CBC, BMP 04/10/17 10:15 04/10/17 10:15 Imaging - Results X-ray: Image Reviewed Problem List - Problems (1) Dislocation of prosthetic knee joint Code(s): T84.028A - DISLOCATION OF OTHER INTERNAL JOINT PROSTHESIS, INIT ENCNTR Z96.659 - PRESENCE OF UNSPECIFIED ARTIFICIAL KNEE JOINT Qualifiers: Encounter type: initial encounter Qualified Code(s): T84.028A - Dislocation of other internal joint prosthesis, initial encounter; Z96.659 - Presence of unspecified artificial knee joint Assessment/Plan 56yo female s/p L TKA 02/02/17, doing well up until 3 days ago when she got up from a chair and sustained a prosthetic knee dislocation which was unable to be reduced under conscious sedation.
[2017-04-10] MEDS ORDERED: VANCOMYCIN 1,000 MG VIAL (RESTRICTED TO ID ONLY) ONE ×2 (14:34→15:18)
[2017-04-10] MEDS ORDERED: DEXAMETHASONE SOD PHOSPHATE 4 MG/1 ML VIAL ONE (15:18)
[2017-04-10] MEDS ORDERED: ONDANSETRON 4 MG/2 ML VIAL ONE ×2 (15:43→15:57)
[2017-04-10] MEDS ORDERED: traMADol HCL 50 MG TABLET ONE (18:26)
[2017-04-10] MEDS ORDERED: KETOROLAC TROMETHAMINE 30 MG/1 ML VIAL ONE (18:26)
[2017-04-10] MEDS ORDERED: ACETAMINOPHEN INJECTION 100 ML IVPB ONE (18:27)
[2017-04-10] MEDS ORDERED: MAGNESIUM HYDROX 2400MG/30ML ORAL SUSPENSION 30 ML CUP PO PRN (18:27)
[2017-04-10] MEDS ORDERED: ONDANSETRON 4 MG/2 ML VIAL IVPB PRN (18:27)
[2017-04-10] MEDS ORDERED: MAG HYDROX/AL HYDROX/SIMETH 30 ML UNIT-DOSE CUP PO PRN (18:27)
[2017-04-10] MEDS ORDERED: LACTATED RINGERS SOLUTION 1,000 ML IV SCH (18:30)
[2017-04-10] MEDS ORDERED: ACETAMINOPHEN 1000 MG/100 ML VIAL (NON FORMULARY) IVPB ONE (18:35)
[2017-04-10] MEDS ORDERED: oxyCODONE HCL 5 MG TABLET PO PRN (18:37)
--- NOTE | 2017-04-10 18:40 | OP ---
Operative Note - Note: Operative Date: 04/10/17 Pre-Operative Diagnosis: left prosthetic knee dislocation Operation: left knee replacement polyethylene exchange and LCL reconstruction Post-Operative Diagnosis: Same as Pre-op Surgeon: Mo Castillo Fruit Picker: Taylor Mendez Anesthesia: Spinal, Local Estimated Blood Loss (mls): 250
--- NOTE | 2017-04-10 18:42 | PROC ---
Joint Reduction - Joint Reduction Risks and Benefits Explained: Yes Consent on Chart: Yes Joint Reduction Site: left: Knee, Posterior Dislocation Pre-Procedure Neuro/Vascular Exam: Warm, [place], Normal Sensation, Positive Distal Pulse(s) Conscious Sedation: Other (Propofol) Procedure: Traction Counter Traction Reduction Attempts: 3 Post-Procedure Neuro/Vascular Exam: Unchanged from pre-exam Splint: No Immobilized: No Remarks: Reduction unsuccessful, patient taken to OR for open reduction and poly exchange
[2017-04-10] MEDS: KETOROLAC TROMETHAMINE 30 MG/1 ML VIAL IVPUSH SCH (18:44)
[2017-04-10] MEDS: traMADol HCL 50 MG TABLET PO SCH (18:45)
[2017-04-10] MEDS: oxyCODONE HCL 5 MG TABLET PO PRN ×2 (20:43→23:32)
[2017-04-10] MEDS: SENNOSIDES/DOCUSATE COMBO (SENNA PLUS) TABLET (UD) PO SCH (21:29)
[2017-04-10] MEDS: ASCORBIC ACID 500 MG TABLET (FP) PO SCH (21:29)
[2017-04-10] MEDS: GABAPENTIN 300 MG CAPSULE (FP) PO SCH (21:30)
[2017-04-10] MEDS ORDERED: oxyCODONE HCL 10 MG SUSTAINED ACTING TABLET PO SCH (22:00)
[2017-04-11] MEDS: traMADol HCL 50 MG TABLET PO SCH ×4 (00:26→18:45)
[2017-04-11] MEDS: ACETAMINOPHEN 325 MG TABLET (FP) PO SCH ×4 (00:26→20:54)
[2017-04-11] MEDS: KETOROLAC TROMETHAMINE 30 MG/1 ML VIAL IVPUSH SCH ×3 (00:27→13:08)
[2017-04-11] MEDS: HYDROmorphone *PCA* 10MG/50ML DISP.SYRIN PCA SCH (01:31)
[2017-04-11] MEDS: CEFAZOLIN 2 GM/D5W 50 ML IVPB SCH ×3 (01:36→18:45)
[2017-04-11] MEDS ORDERED: DEXAMETHASONE SOD PHOSPHATE 10 MG/1 ML VIAL IVPB ONE (02:00)
[2017-04-11 07:58] LABS: MCH 27.3 pg (25.7-33.7); MCHC 32.5 g/dl (32.0-36.0); MEAN CELL VOLUME 83.9 fl (80-96); MEAN PLT VOLUME 7.9 fl (7.5-11.1); PLATELET COUNT 251 K/MM3 (134-434); RDW 13.9 % (11.6-15.6); WHITE BLOOD COUNT 10.4 K/mm3 (4.0-10.8)
[2017-04-11 08:13] LABS: ANION GAP 8 (8-16); CALCIUM 8.5 mg/dl (8.4-10.2); CO2 28 mmol/L (22-28); GLUCOSE,RANDOM 186 mg/dl (74-106)
[2017-04-11] MEDS: ASPIRIN 325 MG TABLET PO SCH (08:30)
[2017-04-11] MEDS ORDERED: oxyCODONE HCL 5 MG TABLET PO PRN (08:32)
[2017-04-11] MEDS ORDERED: ACETAMINOPHEN 325 MG TABLET (FP) PO SCH ×2 (08:45→12:00)
[2017-04-11] MEDS: GABAPENTIN 300 MG CAPSULE (FP) PO SCH ×2 (09:39→21:53)
[2017-04-11] MEDS: PANTOPRAZOLE 40 MG TABLET (FP) PO SCH (09:40)
[2017-04-11] MEDS: ASCORBIC ACID 500 MG TABLET (FP) PO SCH ×2 (09:40→21:53)
[2017-04-11] MEDS: MULTIVITAMINS (DAILY MVI) TABLET (FP) PO SCH (09:40)
[2017-04-11] MEDS: SENNOSIDES/DOCUSATE COMBO (SENNA PLUS) TABLET (UD) PO SCH ×2 (09:40→21:50)
--- NOTE | 2017-04-11 10:23 | EKG ---
Test Reason : Blood Pressure : / mmHG Vent. Rate : 071 BPM Atrial Rate : 071 BPM P-R Int : 160 ms QRS Dur : 106 ms QT Int : 410 ms P-R-T Axes : 029 001 011 degrees QTc Int : 445 ms NORMAL SINUS RHYTHM IVCD NO PREVIOUS ECGS AVAILABLE Confirmed by MD DANIELLE, CHANTALE ([id number]) on 04/11/2017 10:23:24 AM Referred By: VALERIA Confirmed By:CHANTALE ASNTOS MD
[2017-04-11] MEDS: oxyCODONE HCL 10 MG SUSTAINED ACTING TABLET PO SCH ×2 (10:26→21:53)
[2017-04-11] MEDS: oxyCODONE HCL 5 MG TABLET PO PRN ×3 (10:27→19:49)
--- NOTE | 2017-04-11 11:12 | PN ---
Progress Note (short form) - Note Progress Note: 56F POD1 s/p left knee poly exchange and LCL reconstruction. Pt was started on dilaudid IV CLINICAL STAFF EDUCATOR last night for pain, doing well. CLINICAL STAFF EDUCATOR d/c'd today by Dr. Castillo, patient tolerating po pain meds well. Pt denies any anesthetic complications.
--- NOTE | 2017-04-11 22:48 | PN ---
Progress Note (short form) - Note Progress Note: Pt seen and examined. Comfortable now - pain improved. AVSS Selected Entries 04/11/17 04/11/17 14:19 21:00 Temperature 98 F Pulse Rate 82 Respiratory 18 Rate Blood Pressure 143/77 O2 Sat by Pulse 92 L 97 Oximetry (%) Oxygen Delivery Room Air Method Laboratory Tests 04/11/17 04/11/17 07:30 07:30 WBC 10.4 Hgb 12.2 Hct 37.4 Plt Count 251 Sodium 137 Potassium 4.3 D Chloride 101 Carbon Dioxide 28 Anion Gap 8 BUN 12 D Creatinine 1.0 Random Glucose 186 H D Calcium 8.5 Gen: NAD LLE: c/d/i, NVID A/P 56yo female with left prosthetic knee dislocation, s/p poly exchange and LCL reconstruction 1. PT/OOB - WBAT LLE with brace on 2. Plan for d/c home tomorrow evening if pain controlled. Problem List - Problems (1) Dislocation of prosthetic knee joint Code(s): T84.028A - DISLOCATION OF OTHER INTERNAL JOINT PROSTHESIS, INIT ENCNTR Z96.659 - PRESENCE OF UNSPECIFIED ARTIFICIAL KNEE JOINT Qualifiers: Encounter type: initial encounter Qualified Code(s): T84.028A - Dislocation of other internal joint prosthesis, initial encounter; Z96.659 - Presence of unspecified artificial knee joint
[2017-04-11] MEDS: CELECOXIB 200 MG CAPSULE PO SCH (23:14)
[2017-04-12] MEDS: HYDROmorphone *PCA* 10MG/50ML DISP.SYRIN PCA SCH (00:30)
[2017-04-12] MEDS: oxyCODONE HCL 5 MG TABLET PO PRN ×6 (00:32→19:21)
[2017-04-12] MEDS: traMADol HCL 50 MG TABLET PO SCH ×4 (00:33→18:36)
[2017-04-12] MEDS: CEFAZOLIN 2 GM/D5W 50 ML IVPB SCH ×3 (01:57→17:12)
[2017-04-12] MEDS: ACETAMINOPHEN 325 MG TABLET (FP) PO SCH ×4 (02:28→21:26)
[2017-04-12 07:30] LABS: MCH 27.6 pg (25.7-33.7); MCHC 32.6 g/dl (32.0-36.0); MEAN CELL VOLUME 84.7 fl (80-96); MEAN PLT VOLUME 7.6 fl (7.5-11.1); PLATELET COUNT 240 K/MM3 (134-434); RDW 13.8 % (11.6-15.6); WHITE BLOOD COUNT 10.4 K/mm3 (4.0-10.8)
[2017-04-12 07:43] LABS: ANION GAP 2 (8-16); CALCIUM 8.6 mg/dl (8.4-10.2); CO2 34 mmol/L (22-28); CREATININE 1.1 mg/dl (0.6-1.3); GLUCOSE,RANDOM 135 mg/dl (74-106)
[2017-04-12] MEDS: ASPIRIN 325 MG TABLET PO SCH (08:17)
[2017-04-12] MEDS: CELECOXIB 200 MG CAPSULE PO SCH ×2 (09:54→21:25)
[2017-04-12] MEDS: GABAPENTIN 300 MG CAPSULE (FP) PO SCH (09:54)
[2017-04-12] MEDS: ASCORBIC ACID 500 MG TABLET (FP) PO SCH ×2 (09:54→21:25)
[2017-04-12] MEDS: PANTOPRAZOLE 40 MG TABLET (FP) PO SCH (09:55)
[2017-04-12] MEDS: MULTIVITAMINS (DAILY MVI) TABLET (FP) PO SCH (09:55)
[2017-04-12] MEDS: SENNOSIDES/DOCUSATE COMBO (SENNA PLUS) TABLET (UD) PO SCH ×2 (09:55→21:24)
[2017-04-12] MEDS: oxyCODONE HCL 10 MG SUSTAINED ACTING TABLET PO SCH ×2 (09:56→21:25)
[2017-04-12] MEDS ORDERED: CLONAZEPAM 0.125 MG PO PRN (10:02)
[2017-04-12] MEDS: LIOTHYRONINE SODIUM 5 MCG TABLET PO SCH (11:45)
[2017-04-12] MEDS: LOSARTAN POTASSIUM 50 MG TABLET (FP) PO SCH (11:45)
[2017-04-12] MEDS: HYDROCHLOROTHIAZIDE 12.5 MG CAPSULE (FP) PO SCH (11:46)
[2017-04-12] MEDS: LEVOTHYROXINE NA 125 MCG TABLET (FP) PO SCH (11:48)
[2017-04-12] MEDS: LACTATED RINGERS SOLUTION 1,000 ML IV SCH ×3 (11:53→16:48)
[2017-04-12] MEDS: GABAPENTIN 300 MG CAPSULE (FP) PO ONE (11:55)
[2017-04-12] MEDS: CELECOXIB 200 MG CAPSULE PO ONE (11:55)
[2017-04-12] MEDS: oxyCODONE HCL 10 MG SUSTAINED ACTING TABLET PO ONE (11:56)
[2017-04-12] MEDS ORDERED: clonazePAM 0.5 MG TABLET PO PRN (12:16)
--- NOTE | 2017-04-12 15:42 | PATH ---
Surgical Pathology Report Patient Name: CEASAR CARPIO Med. Rec. #: [id number] /Age/Gender: 1960 (Age: 56) / F Account: [id number] Location: [facility] Taken: 04/10/2017 Received: 04/10/2017 Reported: 04/12/2017 Physicians: Mo Castillo M.D. Specimen(s) Received EXPLANT FROM LEFT TOTAL KNEE Clinical History Left total knee replacement dislocation Final Diagnosis EXPLANT, LEFT TOTAL KNEE: HARDWARE, DESCRIBED (GROSS EXAMINATION ONLY). Electronically Signed Valentine López M.D. Gross Description Received fresh labeled "explant from left total knee replacement," is a 7.2 x 4.5 x 3.3 cm white, plastic portion of hardware. Also received within the same container is a 3.6 cm in length x 0.5 cm in diameter martino metallic, cylindrical portion of hardware. No soft tissue is present. No sections are submitted, gross only. /04/11/2017 [place]04/11/2017
[2017-04-12] MEDS ORDERED: ZOLPIDEM TARTRATE 5 MG TABLET PO ONE (21:00)
--- NOTE | 2017-04-12 21:10 | PN ---
Progress Note (short form) - Note Progress Note: Pt seen and examined. Still c/o severe pain. Ambulated with PT. AVSS Selected Entries 04/12/17 04/12/17 04/12/17 08:02 14:08 20:35 Temperature 98.2 F Pulse Rate 64 Respiratory 18 Rate Blood Pressure 112/64 O2 Sat by Pulse 96 94 L Oximetry (%) Oxygen Delivery Room Air Room Air Method Laboratory Tests 04/12/17 04/12/17 07:00 07:00 WBC 10.4 Hgb 11.2 Hct 34.5 Plt Count 240 Sodium 138 Potassium 3.9 Chloride 102 Carbon Dioxide 34 H D Anion Gap 2 L BUN 15 D Creatinine 1.1 Random Glucose 135 H D Gen: NAD LLE: c/d/i, NVID A/P 56yo female with left prosthetic knee dislocation, s/p poly exchange and LCL reconstruction 1. PT/OOB - WBAT LLE with brace on 2. Plan for d/c home tomorrow afternoon if pain controlled. 3. Increase OxyContin to 20mg PO BID 4. Add hydroxyzine 25mg PO q6h standing dose 5. Ambien 5mg PO QHS x 1 dose 6. Continue Ancef 2g IVPB Q8h until discharge - pt is higher risk for infection due to reoperation and ligament repair with allograft. Problem List - Problems (1) Dislocation of prosthetic knee joint Code(s): T84.028A - DISLOCATION OF OTHER INTERNAL JOINT PROSTHESIS, INIT ENCNTR Z96.659 - PRESENCE OF UNSPECIFIED ARTIFICIAL KNEE JOINT Qualifiers: Encounter type: initial encounter Qualified Code(s): T84.028A - Dislocation of other internal joint prosthesis, initial encounter; Z96.659 - Presence of unspecified artificial knee joint
[2017-04-12] MEDS: PREGABALIN 25 MG CAPSULE PO SCH (21:26)
[2017-04-12] MEDS ORDERED: clonazePAM 0.5 MG TABLET PO SCH (22:00)
[2017-04-12] MEDS ORDERED: CLONAZEPAM 0.25 MG PO SCH (22:00)
[2017-04-13] MEDS: traMADol HCL 50 MG TABLET PO SCH ×3 (00:17→12:22)
[2017-04-13] MEDS: CEFAZOLIN 2 GM/D5W 50 ML IVPB SCH ×3 (01:53→17:31)
[2017-04-13] MEDS: ACETAMINOPHEN 325 MG TABLET (FP) PO SCH ×3 (02:59→15:30)
[2017-04-13] MEDS: LEVOTHYROXINE NA 125 MCG TABLET (FP) PO SCH (06:05)
[2017-04-13] MEDS: oxyCODONE HCL 5 MG TABLET PO PRN ×2 (06:45→12:22)
[2017-04-13] MEDS: ASPIRIN 325 MG TABLET PO SCH (08:09)
[2017-04-13] MEDS: hydrOXYzine PAMOATE 25 MG CAPSULE (FP) PO SCH ×3 (08:34→17:31)
[2017-04-13] MEDS: LOSARTAN POTASSIUM 50 MG TABLET (FP) PO SCH (09:26)
[2017-04-13] MEDS: HYDROCHLOROTHIAZIDE 12.5 MG CAPSULE (FP) PO SCH (09:26)
[2017-04-13] MEDS: PREGABALIN 25 MG CAPSULE PO SCH (09:26)
[2017-04-13] MEDS: MULTIVITAMINS (DAILY MVI) TABLET (FP) PO SCH (09:26)
[2017-04-13] MEDS: PANTOPRAZOLE 40 MG TABLET (FP) PO SCH (09:26)
[2017-04-13] MEDS: SENNOSIDES/DOCUSATE COMBO (SENNA PLUS) TABLET (UD) PO SCH (09:27)
[2017-04-13] MEDS: ASCORBIC ACID 500 MG TABLET (FP) PO SCH (09:27)
[2017-04-13] MEDS: oxyCODONE HCL 10 MG SUSTAINED ACTING TABLET PO SCH (09:27)
[2017-04-13] MEDS: CELECOXIB 200 MG CAPSULE PO SCH (09:27)
[2017-04-13] MEDS: LIOTHYRONINE SODIUM 5 MCG TABLET PO SCH (09:44)
[2017-04-13] MEDS ORDERED: PT OWN MED DRAWER 7, Y5N ONE ×2 (09:44→17:30)
[2017-04-13] MEDS ORDERED: PATIENT'S OWN MEDICATION (NON-FORMULARY) (Losartan/Hydrochlorothiazide [Losartan-Hctz 100- PO SCH (10:00)
[2017-04-13] MEDS ORDERED: amLODIPine BESYLATE 2.5 MG TABLET (FP) PO SCH (10:00)
[2017-04-13 14:40] VITALS: BP 133/68; PULSE 67; TEMP 98.1
[2017-04-13] MEDS: LACTATED RINGERS SOLUTION 1,000 ML IV SCH (15:03)
[2017-04-14] MEDS ORDERED: hydrOXYzine PAMOATE 25 MG CAPSULE (FP) PO SCH (22:00)
--- NOTE | 2017-04-18 14:01 | OP ---
DATE OF OPERATION: 04/10/2017 PREOPERATIVE DIAGNOSIS: Left knee prosthetic dislocation. POSTOPERATIVE DIAGNOSES: Left knee prosthetic dislocation and lateral collateral ligament insufficiency. PROCEDURE: Left total knee replacement open arthrotomy, revision of polyethylene component and lateral collateral ligament reconstruction with allograft. SURGEON: Cherelle Hughes MD DOLL EYE SETTER: MARIA DEL ROSARIO Erazo ANESTHETIC: Spinal, plus sedation. ESTIMATED BLOOD LOSS: 50 mL COMPLICATIONS: None. SPECIMENS: Removed polyethylene component was sent for pathologic analysis. DISPOSITION: The patient was transferred to the PACU in stable condition. IMPLANTS USED: [place] 16-mm total-stabilized polyethylene component, tibialis anterior allograft, Arthrex corkscrew anchor x2, Arthrex SwiveLock anchor x1. INDICATIONS: This is a 56-year-old female who is status post left total knee replacement on February 02, 2017, for a severely arthritic left knee with valgus deformity. The patient underwent surgery with no complications and did well initially postoperatively. She was discharged home and continued to do well for nearly 10 weeks until she was getting up from a seated position, felt a pop, and was unable to ambulate after that. She went to the emergency room where x-rays were taken, and she was told that the prosthetic appeared to be okay. She continued to have severe ambulatory dysfunction and came to the office where repeat x-rays showed that the knee replacement had dislocated and the post of the tibia was sitting posterior to the femur; thus making this a posterior dislocation. The patient was referred from the office straight to the ER at [facility] where I was performing surgery that day. She was seen and examined by Dr. Hughes and x-rays were reviewed and these did, in fact, show a posterior dislocation of the total knee replacement prosthesis. Findings and x-rays were reviewed with the patient, and initially, we elected to proceed with a closed reduction under sedation. The patient was brought to the PACU and placed under monitoring. Conscious sedation was administered by the anesthesiologist. Using a traction/counter traction technique, reduction of the dislocated knee prosthesis was attempted and was unsuccessful after several tries. The patient was then awakened from sedation, and findings were again discussed with the patient and her . Because the knee was unable to be reduced under sedation, it was necessary to proceed with open reduction. At that time, we would do a polyethylene exchange to a thicker size for increased stability of the knee, as well as a full examination of structures inside to see why the knee dislocated as this is a very rare complication. The risks, benefits, and alternatives to the revision procedure were explained to the patient and her in great detail, and they elected to proceed with the surgery. DESCRIPTION OF PROCEDURE: The patient was taken to the operating room and placed supine on the OR table. She was then administered spinal anesthesia by the anesthesiologist. A tourniquet was placed on the proximal thigh. The left knee was then prepped and draped in the usual sterile fashion, and intravenous antibiotics were given for infection prophylaxis. A surgical timeout was then performed with the team, and the patient's identity, procedure, side, availability of implants, and the administration of antibiotics were confirmed. With the patient under anesthesia, the leg was again manipulated, and at this time, with full paralysis from the spinal, closed reduction of the knee dislocation was able to be achieved. It was noted that there was now a significant laxity in the varus/valgus direction compared to the patient's initial postoperative exam, as well as subsequent followup postoperative exams in the office. With the knee flexed, a midline incision was made and carried down through the subcutaneous fat to the underlying retinaculum. This incision incorporated the previous knee replacement incision scar. A medial parapatellar arthrotomy was performed. This was followed by a subperiosteal dissection of some of the tissue of off the proximal medial tibia. The knee was then flexed further, and the polyethylene insert was removed to create space to work and to provide greater visualization of the components. The patellar component was found to be well positioned and well fixed. The femoral and tibial components were also found to be well positioned and well fixed with adequate external rotation of both. The lateral collateral ligament was found to be severely attenuated. It was not frankly torn and had attachments both proximally and distally but had been stretched out to the point where it was very lax and there was a significant difference between the medial and lateral compartments in terms of ligamentous laxity. Trial polyethylene components were then placed, and the knee was taken through a full range of motion. Soft tissue balance was assessed in both flexion and extension using various-thickness trials. The knee was stable throughout the full range of motion but had severe laxity to varus stress due to the attenuated LCL. In addition, this allowed the lateral compartment to significantly gap open, and with the correct series of movements, it was possible to dislocate the knee replacement and cause the tibial polyethylene component post to sit behind the femur, locked in this position. It was reducible intraoperatively but was easily reproducible. We determined that the reason it was so unstable was because the LCL was not functional. It was decided that an LCL reconstruction was necessary. The patient already had a constrained polyethylene liner in place and was still able to dislocate the knee. Even with a much thicker constrained polyethylene liner, the knee could still be dislocated. Therefore, we proceeded with the LCL reconstruction. First, the final polyethylene component, which had been chosen after trialing multiple sizes, was placed on the tibia, and its central post was impacted in place. This was a 16-mm [place] Triathlon total-stabilized polyethylene component. From here, we elected to reinforce/reconstruct the LCL. A tibialis anterior allograft was sawed and the distance from the lateral epicondyle of the femur to the lateral proximal tibial plateau was measured and the allograft was cut to a length slightly larger than this. We elected to secure the LCL reconstruction to the lateral tibial plateau rather than the fibular head in order to avoid making another incision which could possibly lead to skin necrosis because it would be very close to the arthrotomy incision. Arthrex corkscrew anchors were used to secure the allograft in place. A corkscrew anchor was placed in the lateral epicondyle slightly proximal and posterior to the origin of the [place] LCL. The FiberWire sutures arising from this anchor were then woven through the tibialis anterior allograft using a Krackow stitch. This was then tied down to the anchor and was firmly held against bone. distally, a similar process was carried out with a corkscrew anchor placed in the proximal lateral tibial plateau, and with a valgus stress on the knee, the LCL was brought down to this anchor, and the FiberWire sutures emanating from the anchor were woven through the distal aspect of the tibialis anterior LCL, grasped, and it was secured down to bone with Krackow stitch. Next, a No. 2 FiberWire suture was used to tubularize this allograft and the [place] LCL, which was severely attenuated, was woven into this in order to reinforce it. It was noted that there was still some laxity proximally, so a SwiveLock anchor was used to capture the suture ends from the corkscrew suture which had been woven through the tibialis anterior allograft and tension this and attach it to bone proximal to the corkscrew on the lateral epicondyle of the femur. With the knee in full extension, there was found to be adequate tension in the LCL allograft which was also interwoven with the [place] LCL. The knee was resistant to varus stress and did not open up. There was also adequate tension in flexion as well. Following this, the wound was thoroughly irrigated with normal saline. A 3-minute dilute betadine lavage was performed according to the [place] protocol. After this, the wound was again thoroughly irrigated with normal saline, and wound closure was begun. The wound was closed with No. 1 Vicryl and No. 0 V-Loc 180 sutures, barbed sutures to close the arthrotomy, and 2-0 V-Loc 90 sutures were used in the subcutaneous tissues. The skin was closed using both 3-0 V-Loc 90 suture in a running subcuticular fashion and Dermabond skin adhesive. Once this was completed, a sterile Aquacel dressing was applied. A knee immobilizer was placed on the knee to protect against the varus/valgus stress. The patient was then awakened and taken to the PACU in stable condition. CHERELLE HUGHES M.D. [id number]
== END 2017-04-13 17:55 | disposition home health service (06) | DRG 302 ==
LOC: FER 09:25 → FASU 11:13 → FM/S 14:02
PROVIDERS: ADMIT Student in an Organized Health Care Education/Training Program; ATTEND Student in an Organized Health Care Education/Training Program
PROC: 0SRD0JZ Replacement of Left Knee Joint with Synthetic Substitute, Open Approach (ICD-10-PCS; 2017-04-10)
PROC: 0MUP0KZ Supplement Left Knee Bursa and Ligament with Nonautologous Tissue Substitute, Open Approach (ICD-10-PCS; 2017-04-10)
PROC: 0SSDXZZ Reposition Left Knee Joint, External Approach (ICD-10-PCS; 2017-04-10)
PROC: 0SPD0JZ Removal of Synthetic Substitute from Left Knee Joint, Open Approach (ICD-10-PCS; principal; 2017-04-10 13:00)
DX: T84.028A Dislocation of other internal joint prosthesis, initial encounter (principal); E03.9 Hypothyroidism, unspecified; F41.8 Other specified anxiety disorders; K21.9 Gastro-esophageal reflux disease without esophagitis; Z96.652 Presence of left artificial knee joint
CPT/HCPCS: 36415; 73560-TC-LT; 80048; 80053; 85027; 85610; 86850; 86900; 86901; 88300-TC; 93005; 94010; 94760; 97116-GP; 99282-25